=== PATIENT | male | born 1990 | race Caucasian/White ===

== ENCOUNTER 2021-12-19 14:15 | Emergency (ER) | payer OTHER ==
[~2021-12-19] VITALS: Ht 177.8 cm; Wt 86.2 kg
[2021-12-19 15:22] LABS: BASO # 0.1 10*3/uL (0.0-0.1); BASO % 0.5 % (0.0-1.0); EOS # 0.1 10*3/uL (0.0-0.4); HEMATOCRIT 44.2 % (42.0-52.0); LYMPH # 1.2 10*3/uL (1.3-4.4); LYMPH % 8.4 % (27.0-41.0); MEAN CELL VOLUME 91.1 fl (80.0-94.0); MEAN CORPUSCULAR HGB 30.5 pg (27.0-31.0); MEAN CORPUSCULAR HGB CONC 33.5 g/dl (33.0-37.0); MEAN PLATELET VOLUME 10.9 fl (9.6-12.3); NEUT # 11.4 10*3/uL (2.3-7.9); NEUT % 82.6 % (47.0-73.0); PLATELET COUNT AUTOMATED 282 10*3/uL (130-400); RED BLOOD COUNT 4.85 10*6/uL (4.50-5.90); RED CELL DISTRI WIDTH 13.1 % (0-14.5); WHITE BLOOD COUNT 13.8 10*3/uL (4.8-10.8)
[2021-12-19 15:40] LABS: ALKALINE PHOSPHATASE 78 U/L (45-117); BUN 12 mg/dl (7-24); CHLORIDE 105 mmol/L (98-107); CREATININE 1.09 mg/dL (0.70-1.30); POTASSIUM 4.5 mmol/L (3.5-5.1); SGOT/AST 23 IU/L (3-35); SGPT/ALT 37 U/L (12-78); SODIUM 138 mmol/L (136-145); TOTAL PROTEIN 8.2 gm/dL (6.4-8.2); URIC ACID 9.6 mg/dL (3.5-7.2)
[2021-12-19] MEDS ORDERED: CEPHALEXIN500 M1 PO (16:59)
== END 2021-12-19 17:30 | disposition home or self-care (01) ==
LOC: ED 14:15
PROVIDERS: Physician Assistant
DX: M10.9 Gout, unspecified (principal); L03.116 Cellulitis of left lower limb

== ENCOUNTER 2024-02-13 08:13 | Emergency (ER) | payer SELFPAY ==
[~2024-02-13] VITALS: Ht 177.8 cm; Wt 90.7 kg
[~2024-02-13 08:13] MED LIST: CEPHALEXIN500 M1 PO
[2024-02-13] MEDS ORDERED: AMOX-CLAV 875-1 EACH PO (08:37)
[2024-02-13] MEDS ORDERED: Tdap Vaccine 0.5 ML SYR (Adult Vaccine) IM ONE (08:40)
[2024-02-13] MEDS ORDERED: Rabies Vaccine 1 ML VIAL IM ONE (08:40)
[2024-02-13] MEDS ORDERED: Rabies Immune Globulin 300 UNIT/2 ML VIAL IM ONE (08:40)
[2024-02-13] MEDS ORDERED: RABIES IMMUNE GLOBULIN U RABIES IMMUNE GLOBULIN U IM ONE (08:45)
== END 2024-02-13 09:46 | disposition home or self-care (01) ==
LOC: ED 08:13
DX: S31.154A Open bite of abdominal wall, left lower quadrant without penetration into peritoneal cavity, initial encounter (principal); Z79.2 Long term (current) use of antibiotics; W54.0XXA Bitten by dog, initial encounter; Y93.89 Activity, other specified; Y92.89 Other specified places as the place of occurrence of the external cause; Y99.8 Other external cause status

== ENCOUNTER 2024-02-16 15:22 | Emergency (ER) | payer SELFPAY ==
[~2024-02-16] VITALS: Ht 177.8 cm; Wt 90.7 kg
[~2024-02-16 15:22] MED LIST changes: +AMOX-CLAV 875-1 EACH PO
[2024-02-16] MEDS ORDERED: Rabies Vaccine 1 ML VIAL IM ONE (16:10)
== END 2024-02-16 16:13 | disposition home or self-care (01) ==
LOC: ED 15:22
DX: S30.1XXD Contusion of abdominal wall, subsequent encounter (principal); Z23 Encounter for immunization; W54.0XXD Bitten by dog, subsequent encounter

== ENCOUNTER 2024-02-19 12:16 | Emergency (ER) | payer SELFPAY ==
[~2024-02-19] VITALS: Ht 177.8 cm; Wt 90.7 kg
[2024-02-19] MEDS ORDERED: Rabies Vaccine 1 ML VIAL IM ONE (13:20)
== END 2024-02-19 13:29 | disposition home or self-care (01) ==
LOC: ED 12:16
DX: S31.15 Open bite of abdominal wall without penetration into peritoneal cavity (principal); Z23 Encounter for immunization; W54.0XXD Bitten by dog, subsequent encounter

== ENCOUNTER 2024-02-26 15:54 | Emergency (ER) | payer SELFPAY ==
[~2024-02-26] VITALS: Ht 177.8 cm; Wt 90.7 kg
[2024-02-26] MEDS ORDERED: Rabies Vaccine 1 ML VIAL IM ONE (17:00)
== END 2024-02-26 17:04 | disposition home or self-care (01) ==
LOC: ED 15:54
DX: S31.15 Open bite of abdominal wall without penetration into peritoneal cavity (principal); Z23 Encounter for immunization; W54.0XXD Bitten by dog, subsequent encounter